=== PATIENT | female | born 1970 | race Caucasian/White ===

== ENCOUNTER 2016-11-10 11:47 | Emergency (ER) | payer OTHER ==
[2016-11-10 12:01] VITALS: BP 139/98
[2016-11-10] MEDS ORDERED: XYLOCAINE 1%/ EPI 1:100,000 INFILTRATI NR (14:00)
[2016-11-10] MEDS ORDERED: MOTRIN PO ONE (14:00)
[2016-11-10] MEDS ORDERED: XYLOCAINE 1%/ EPI 1:100,000 INFILTRATI ONE (14:03)
--- NOTE | 2016-11-10 14:56 | Emergency Department Report ---
Abscess Boil HPI - HPI Chief Complaint: Skin/Abscess/Foreign Body Stated Complaint: LEFT FOOT/LEG NUMB X 2DAYS Time Seen by Provider: 11/10/16 13:52 Duration: 5 Days Location: Upper Extremity Severity: Moderate History: Yes Pain, No Fever, No Purulent Drainage, No Numbness, No Foreign Body , No Previous History, No Insect Bite HPI: 46F PMH recurrent abscess presents with complaint of 4-5 days of right axillary abscess. Denies any fever or chills states she had my mild purulent drainage. States she has had abscess in right axilla in the past. Only complaining of mild left foot discomfort. Patient states that she works standing up all day. Denies any direct trauma to foot. Home Medications: Previous Rx's Medication Instructions Recorded Last Taken Type Cephalexin [Keflex] 500 mg PO Q12HR #14 cap 11/10/16 Unknown Rx Ibuprofen [Motrin] 600 mg PO Q8H PRN #30 tablet 11/10/16 Unknown Rx Sulfamethoxazole/Trimethoprim 1 each PO BID #14 tablet 11/10/16 Unknown Rx [Bactrim DS TAB] Allergies/Adverse Reactions: Allergies Allergy/AdvReac Type Severity Reaction Status Date / Time No Known Allergies Allergy Verified 11/10/16 12:09 ED Review of Systems ROS: Stated complaint: LEFT FOOT/LEG NUMB X 2DAYS Other details as noted in HPI Constitutional: denies: chills, fever Eyes: denies: eye pain, eye discharge, vision change ENT: denies: ear pain, throat pain Respiratory: denies: cough, shortness of breath, wheezing Cardiovascular: denies: chest pain, palpitations Endocrine: no symptoms reported Gastrointestinal: denies: abdominal pain, nausea, diarrhea Genitourinary: denies: urgency, dysuria, discharge Musculoskeletal: denies: back pain, joint swelling, arthralgia Skin: as per HPI. denies: rash, lesions Neurological: denies: headache, weakness, paresthesias Psychiatric: denies: anxiety, depression Hematological/Lymphatic: denies: easy bleeding, easy bruising ED Past Medical Hx - Past Medical History Previous Medical History?: Yes Hx Hypertension: Yes - Surgical History Past Surgical History?: Yes Additional Surgical History: , ovarian cyst - Social History Smoking Status: Never Smoker Substance Use Type: Alcohol - Medications Home Medications: Home Medications Medication Instructions Recorded Confirmed Last Taken Type Cephalexin [Keflex] 500 mg PO Q12HR #14 cap 11/10/16 Unknown Rx Ibuprofen [Motrin] 600 mg PO Q8H PRN #30 tablet 11/10/16 Unknown Rx Sulfamethoxazole/Trimethoprim 1 each PO BID #14 tablet 11/10/16 Unknown Rx [Bactrim DS TAB] ED Abscess Boil Physical Exam - Exam General: Vital signs noted. No distress. Alert and acting appropriately. Front/Back of Body, Lg (Color): 1 - Right axillary abscess approximately 3-4 cm in diameter with central abscess head and mild fluctuance. No surrounding cellulitis tender to touch on clinical exam. Size: 4 cm Exam: Yes Fluctuance, No Tenderness, No Surrounding Cellulites/Erythema, No Lymphangitis, No Crepitation I & D Note - I & D Note I & D Note: Area infiltrated with lidocaine 1% with epinephrine. Small vertical 1.5 cm incision made with 11 blade. I was able to extract some sebaceous material and purulent drainage approximately 3-4 mL's. One culture collected and sent. Procedure tolerated well with minimal pain and minimal bleeding. As there was a significant amount of swelling and area I used ultrasound to attempt to fine any area of fluctuance and soft tissue. There is no discrete pocket of fluctuance on ultrasound using the vascular probe. Visible soft tissue swelling changes on ultrasound of her right axillary region. ED Course Vital Signs 11/10/16 11:54 Temperature 99.6 F Pulse Rate 110 H Respiratory 16 Rate Blood Pressure 139/98 O2 Sat by Pulse 99 Oximetry Critical care attestation.: If time is entered above; I have spent that time in minutes in the direct care of this critically ill patient, excluding procedure time. ED Medical Decision Making - Medical Decision Making A/P: Right axillary abscess 1-incision and drainage performed, wound culture sent 2-no packing inserted 3-wound check 48 hours in ED 4-we'll initiate Bactrim and Keflex twice a day 7 days 5- Motrin 600 mg when necessary 6-I advised patient to return to the ED for any excessive bleeding pus drainage fever chills ED Disposition Clinical Impression: Axillary abscess Disposition: DISCHARGED TO HOME OR SELFCARE Is pt being admited?: No Does the pt Need Aspirin: No Condition: Stable Instructions: Abscess (ED), Incision and Drainage (ED) Additional Instructions: Patient advised to return to the ED in 48 hours for wound check right axilla wound culture sent Prescriptions: Sulfamethoxazole/Trimethoprim [Bactrim DS TAB] 1 each PO BID #14 tablet Cephalexin [Keflex] 500 mg PO Q12HR #14 cap Ibuprofen [Motrin] 600 mg PO Q8H PRN #30 tablet PRN Reason: Pain Referrals: PRIMARY CAREMD [Primary Care Provider] - 3-5 Days [facility] [Outside] - 3-5 Days ROBERT GILBERT MD [Staff Physician] - 3-5 Days [employer] [facility] [Provider Group] - 3-5 Days Forms: Work/School Release Form(ED) Time of Disposition: 14:56
== END 2016-11-10 15:04 | disposition home or self-care (01) ==
LOC: ED 11:47
DX: L02.411 Cutaneous abscess of right axilla (principal); I10 Essential (primary) hypertension
CPT/HCPCS: 82962; 86403; 87076; 87116; 87186

== ENCOUNTER 2016-11-13 09:57 | Emergency (ER) | payer OTHER ==
[2016-11-13 10:06] VITALS: BP 135/88
--- NOTE | 2016-11-13 11:09 | Emergency Department Report ---
Chief Complaint: Fever Stated Complaint: WOUND CHECK/FEVER Time Seen by Provider: 11/13/16 10:54 - HPI History of Present Illness: 46-year-old female presents today for a wound check of an abscess that was lanced in her right axillary region 2 days ago. Patient states that she is taking her antibiotics as prescribed. Patient complaining of fever on and off, Tmax = 104. Also complaining of vaginal discharge light brown in color in vaginal itching and burning. Positive for burning upon urination. Denies vaginal bleeding, blood in urine. Patient states that she tried Monistat which made her symptoms worse. Denies chest pain, shortness of breath. - ROS Review of Systems: Per HPI - Exam Vital Signs: Vital Signs 11/13/16 10:03 Temperature 99.0 F Pulse Rate 107 H Respiratory 16 Rate Blood Pressure 135/88 O2 Sat by Pulse 99 Oximetry Physical Exam: General: 46-year-old female in no acute distress. Well-developed, well- nourished. CV: Tachycardic. Regular rhythm. Lungs: Clear to auscultation bilaterally. Right axillary: 3-4 cm in diameter indurated abscess. No surrounding cellulitis noted. Mildly tender to touch. MSE screening note: Focused history and physical exam performed. Due to findings the following was ordered: ED Disposition for MSE Condition: Stable
[2016-11-13 11:46] LABS: Basophils % (Auto) 0.3 % (0.0-1.8); Eosinophils % (Auto) 1.8 % (0.0-4.3); Hemoglobin 13.8 gm/dl (10.1-14.3); Mean Corpuscular HGB Conc 34 % (30-34); Mean Corpuscular Hemoglobin 29 pg (28-32); Mean Corpuscular Volume 87 fl (79-97); Platelet Count 326 K/mm3 (140-440); Red Blood Count 4.69 M/mm3 (3.65-5.03); Red Cell Distribution Width 12.9 % (13.2-15.2)
[2016-11-13 11:55] LABS: Anion Gap 18 mmol/L; Blood Urea Nitrogen 7 mg/dL (7-17); Calcium 8.8 mg/dL (8.4-10.2); Carbon Dioxide 23 mmol/L (22-30); Chloride 97.4 mmol/L (98-107); Glucose 107 mg/dL (65-100); Potassium 4.1 mmol/L (3.6-5.0); Sodium 134 mmol/L (137-145)
[2016-11-13 12:55] LABS: Bilirubin,Urine NEG (Negative); Blood,Urine NEG (Negative); Ketones,Urine NEG (Negative); Leukocyte Esterase,Urine LG (Negative); Mucus,Urine FEW /HPF; Nitrite,Urine NEG (Negative)
[2016-11-13 12:57] LABS: WBC,Urine > 182.0 /HPF (0.0-6.0)
--- NOTE | 2016-11-14 15:02 | ED Elopement Review ---
ED Pt Elopement review - Results review Lab results: Laboratory Tests 11/13/16 11/13/16 11/13/16 11:25 11:25 Unknown WBC 8.0 RBC 4.69 Hgb 13.8 Hct 41.0 MCV 87 MCH 29 MCHC 34 RDW 12.9 L Plt Count 326 Lymph % (Auto) 10.3 L [place] % (Auto) 6.2 Eos % (Auto) 1.8 Baso % (Auto) 0.3 Lymph # 0.8 L [place] # 0.5 Eos # 0.1 Baso # 0.0 Seg Neutrophils % 81.4 H Seg Neutrophils # 6.5 Sodium 134 L Potassium 4.1 Chloride 97.4 L Carbon Dioxide 23 Anion Gap 18 BUN 7 Creatinine 1.0 Estimated GFR > 60 BUN/Creatinine Ratio 7.00 Glucose 107 H Calcium 8.8 Urine Color Yellow Urine Turbidity Cloudy Urine pH 5.0 Ur Specific [place] 1.027 Urine Protein 100 mg/dl Urine Glucose (UA) Neg Urine Ketones Neg Urine Blood Neg Urine Nitrite Neg Urine Bilirubin Neg Urine Urobilinogen 2.0 Ur Leukocyte Esterase Lg Urine WBC (Auto) > 182.0 H Urine RBC (Auto) 40.0 U Epithel Cells (Auto) 11.0 Urine Mucus Few - Call Back decision Pt Call Back Decision: Pt to F/U with PMD (patient with a urinary tract infection.)
== END 2016-11-13 22:33 | disposition left against medical advice (07) ==
LOC: ED 09:57
DX: R50.9 Fever, unspecified (principal); N89.8 Other specified noninflammatory disorders of vagina; R30.0 Dysuria; Z53.21 Procedure and treatment not carried out due to patient leaving prior to being seen by health care provider
CPT/HCPCS: 36415; 80048; 81001; 85025